=== PATIENT | male | born 1990 ===

== ENCOUNTER 2017-02-11 14:50 | Emergency (ER) | payer OTHER ==
[2017-02-11 14:55] VITALS: BP 136/76; PULSE 59; RESP 18; TEMP 98; O2SAT 99
--- NOTE | 2017-02-11 15:02 | ED PDOC ---
Lower Extremity Pain/Injury Time Seen by Provider: 02/11/17 14:56 Chief Complaint (Nursing): Lower Extremity Problem/Injury Chief Complaint (Provider): Left leg pain History Per: Patient History/Exam Limitations: no limitations Current Symptoms Are (Timing): Still Present Additional Complaint(s): Jevon Álvarez is a 26 y/o male presenting to the ER on 02/11/2017 with complaints of sciatic pain radiating down his left leg that has been ongoing for three months. Patient reports he has taken Tylenol in the past which has helped minimally. Denies any bowel or bladder dysfunction. Patient has not taken any pain medications in the past five days. He denies fall or trauma and states that he does heavy lifting at work on regular basis. Past Medical History Reviewed: Historical Data, Nursing Documentation, Vital Signs Vital Signs: Last Vital Signs Temp 98.0 F 02/11/17 14:53 Pulse 59 L 02/11/17 14:53 Resp 18 02/11/17 14:53 BP 136/76 02/11/17 14:53 Pulse Ox 99 02/11/17 14:53 - Medical History PMH: No Chronic Diseases - Surgical History Surgical History: No Surg Hx - Family History Family History: States: No Known Family Hx - Living Arrangements Living Arrangements: With Family - Social History Current smoker - smoking cessation education provided: No Alcohol: None Drugs: Denies - Home Medications Home Medications: Ambulatory Orders Medication Instructions Recorded Cyclobenzaprine [Cyclobenzaprine 10 mg PO TID PRN #20 tab 02/11/17 HCl] Naproxen [Naprosyn] 500 mg PO BID #20 tab 02/11/17 - Allergies Allergies/Adverse Reactions: Allergies Allergy/AdvReac Type Severity Reaction Status Date / Time No Known Allergies Allergy Verified 02/11/17 14:53 Wells Criteria for PE - Wells Criteria for Pulmonary Embolism Clinical Signs and Symptoms of DVT: No P.E is #1 Diagnosis, or Equally Likely: No Heart Rate >100: No Immobilization at least 3 days;Surgery previous 4 weeks: No Previous, objectively diagnosed PE or DVT: No Hemoptysis: No Malignancy w/treatment within 6 months, or palliative: No Total Score: 0 Review of Systems ROS Statement: Except As Marked, All Systems Reviewed And Found Negative Constitutional: Negative for: Fever, Chills Genitourinary Male: Negative for: Dysuria, Frequency, Incontinence Musculoskeletal: Positive for: Leg Pain (left leg pain for 3 months) Neurological: Negative for: Weakness, Numbness Physical Exam - Reviewed Nursing Documentation Reviewed: Yes Vital Signs Reviewed: Yes - Physical Exam Appears: Positive for: Non-toxic, No Acute Distress Head Exam: Positive for: ATRAUMATIC, NORMOCEPHALIC Skin: Positive for: Normal Color. Negative for: Rash Eye Exam: Positive for: Normal appearance Cardiovascular/Chest: Positive for: Regular Rate, Rhythm. Negative for: Murmur Respiratory: Positive for: Normal Breath Sounds. Negative for: Respiratory Distress Back: Positive for: Normal Inspection. Negative for: Vertebral Tenderness Extremity: Positive for: Normal ROM (pain elicited with left leg straight leg raise). Negative for: Tenderness, Calf Tenderness, Deformity, Swelling Neurologic/Psych: Positive for: Alert, Oriented, Gait (steady ). Negative for: Motor/Sensory Deficits - ECG O2 Sat by Pulse Oximetry: 99 Pulse Ox Interpretation: Normal Medical Decision Making Medical Decision Makin:56 Initial Impression- 26 y/o male with sciatica Plan: IM toradol Patient reports improvement to pain after injection. Rx for Naprosyn and Flexeril upon discharge. 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 Documented by Griselda Vallejo, acting as a scribe for Chhaya Bell PA-C All medical record entries made by the Scribe were at my direction and personally dictated by me. I have reviewed the chart and agree that the record accurately reflects my personal performance of the history, physical exam, medical decision making, and the department course for this patient. I have also personally directed, reviewed, and agree with the discharge instructions and disposition. Disposition - Clinical Impression Clinical Impression: Sciatic leg pain - Patient ED Disposition Is Patient to be Admitted: No Counseled Patient/Family Regarding: Diagnosis, Need For Followup, Rx Given - Disposition Referrals: [facility] [Outside] Disposition: Routine/Home Disposition Time: 15:18 Condition: STABLE Additional Instructions: Take rx meds as directed. Follow up with clinic for further evaluation. Prescriptions: Cyclobenzaprine [Cyclobenzaprine HCl] 10 mg PO TID PRN #20 tab PRN Reason: Muscle Spasm Naproxen [Naprosyn] 500 mg PO BID #20 tab Instructions: Sciatica (ED) Forms: [employer] (Bengali) Print Language: KOSOVAN
== END 2017-02-11 16:07 | disposition home or self-care (01) ==
LOC: H.ER 14:50
DX: M54.31 Sciatica, right side (principal)

== ENCOUNTER 2017-12-12 10:56 | Emergency (ER) | payer OTHER ==
[2017-12-12 11:18] VITALS: BP 139/87; PULSE 78; RESP 16; TEMP 98.3; O2SAT 98
--- NOTE | 2017-12-12 12:09 | ED PDOC ---
HPI: Back Time Seen by Provider: 12/12/17 12:01 Chief Complaint (Nursing): Lower Extremity Problem/Injury Chief Complaint (Provider): Back & left leg pain History Per: Patient History/Exam Limitations: language barrier (translated by minna) Onset/Duration Of Symptoms: Days (x5) Current Symptoms Are (Timing): Still Present Quality Of Discomfort: "Pain" Previous Symptoms: None Associated Symptoms: None Exacerbating Factor(s): Movement Additional Complaint(s): Jevon Álvarez is a 27 year old male, with no significant past medical history, who presents to the emergency department complaining of lower back pain onset for x5 days. Patient reports pain radiates down the left leg and is exacerbated by movement. He took Tylenol for pain with minimal relief. He denies any fever, chills, numbness or tingling, weakness, dysuria or incontinence. No further medical complaints. PMD: None provided. Past Medical History Reviewed: Historical Data, Nursing Documentation, Vital Signs Vital Signs: Last Vital Signs Temp 98.3 F 12/12/17 11:15 Pulse 78 12/12/17 11:15 Resp 16 12/12/17 11:15 BP 139/87 12/12/17 11:15 Pulse Ox 98 12/12/17 11:15 - Medical History PMH: No Chronic Diseases Denies: Chronic Kidney Disease - Surgical History Surgical History: No Surg Hx - Family History Family History: States: Unknown Family Hx - Social History Current smoker - smoking cessation education provided: No Alcohol: Social Drugs: Denies - Home Medications Home Medications: Ambulatory Orders Medication Instructions Recorded Cyclobenzaprine [Cyclobenzaprine 10 mg PO TID PRN #20 tab 02/11/17 HCl] Naproxen [Naprosyn] 500 mg PO BID #20 tab 02/11/17 Cyclobenzaprine [Cyclobenzaprine 10 mg PO Q8H #20 tab 12/12/17 HCl] Ibuprofen [Motrin Tab] 800 mg PO Q6H PRN #20 tab 12/12/17 - Allergies Allergies/Adverse Reactions: Allergies Allergy/AdvReac Type Severity Reaction Status Date / Time No Known Allergies Allergy Verified 02/11/17 14:53 Review of Systems ROS Statement: Except As Marked, All Systems Reviewed And Found Negative Constitutional: Negative for: Fever, Chills Genitourinary Male: Negative for: Dysuria, Incontinence Musculoskeletal: Positive for: Back Pain (lower), Leg Pain (left) Neurological: Negative for: Weakness, Numbness (tingling) Physical Exam - Reviewed Nursing Documentation Reviewed: Yes Vital Signs Reviewed: Yes - Physical Exam Appears: Positive for: Non-toxic Head Exam: Positive for: ATRAUMATIC, NORMOCEPHALIC Skin: Positive for: Normal Color, Warm, Dry Eye Exam: Positive for: Normal appearance Neck: Positive for: Painless ROM Respiratory: Negative for: Respiratory Distress Back: Positive for: Other (+ straight leg raise. Midline tenderness). Negative for: L CVA Tenderness, R CVA Tenderness Extremity: Negative for: Tenderness, Deformity, Swelling Neurologic/Psych: Positive for: Alert, Oriented - ECG O2 Sat by Pulse Oximetry: 98 (RA) Pulse Ox Interpretation: Normal Medical Decision Making Medical Decision Making: Time: 12:01 Initial Impression: Sciatica Initial Plan: --Urine dipstick --Flexeril 10 mg PO --Motrin tab 600 mg PO --LS Spine AP/LAT [RAD] --Reevaluation 12:37 Lumbar Spine FINDINGS: BONES: Normal alignment. No listhesis. No fracture. DISC SPACES: Unremarkable. OTHER FINDINGS: None. IMPRESSION: Unremarkable radiographs of the lumbar spine. Urine without leuks or nitrites Pt reports feeling better on re-evaluation. Scribe Attestation: Documented by Terry Chavis, acting as a scribe for Stephanie Horton PA-C Provider Scribe Attestation: All medical record entries made by the Scribe were at my direction and personally dictated by me. I have reviewed the chart and agree that the record accurately reflects my personal performance of the history, physical exam, medical decision making, and the department course for this patient. I have also personally directed, reviewed, and agree with the discharge instructions and disposition. Disposition - Clinical Impression Clinical Impression: Sciatica - Patient ED Disposition Is Patient to be Admitted: No Counseled Patient/Family Regarding: Diagnosis, Need For Followup, Rx Given - Disposition Disposition: Routine/Home Disposition Time: 13:08 Condition: STABLE Prescriptions: Cyclobenzaprine [Cyclobenzaprine HCl] 10 mg PO Q8H #20 tab Ibuprofen [Motrin Tab] 800 mg PO Q6H PRN #20 tab PRN Reason: Pain Instructions: Sciatica Exercises, Sciatica (DC) Forms: [employer] ([place]an) Print Language: DOMINICAN
--- NOTE | 2017-12-12 12:39 | RAD ---
PROCEDURE: Radiographs of the Lumbar Spine. HISTORY: low back pain COMPARISON: No prior. FINDINGS: BONES: Normal alignment. No listhesis. No fracture. DISC SPACES: Unremarkable. OTHER FINDINGS: None. IMPRESSION: Unremarkable radiographs of the lumbar spine.
== END 2017-12-12 13:27 | disposition home or self-care (01) ==
LOC: H.ER 10:56
DX: M54.32 Sciatica, left side (principal)